=== PATIENT | female | born 1980 | race Caucasian/White ===

== ENCOUNTER 2021-08-21 17:33 | Emergency (ER) | payer MEDICARE, OTHER ==
[2021-08-21 17:42] VITALS: BP 118/76; PULSE 142; RESP 16; TEMP 98.4
[2021-08-21] MEDS ORDERED: ACETAMINOPHEN TAB 325 MG TAB PO STA (18:40)
--- NOTE | 2021-08-21 18:48 | ED ---
General Adult HPI <Gunnar Collazo - Last Filed: 08/21/21 19:54> - General Source: patient Mode of arrival: wheelchair Limitations: no limitations <Nicole Russell - Last Filed: 08/21/21 20:36> - General Chief complaint: Extremity Injury, Lower Stated complaint: Left Toenail injury Time Seen by Provider: 08/21/21 17:50 - History of Present Illness Initial comments: This 40-year-old female presents emergency Department after being sent here by urgent care for left great toenail pain. Patient states she went to step down off a curb when she tripped and fell, causing her left toenail on her great toe to bend backwards. Patient states since her toenails long she felt it pullback and states it began to bleed. Patient denies taking any medications for this. Patient denies her left toenail completely bending over. Patient denies any past trauma to this foot or toe. Patient denies any chest pain, shortness of breath, abdominal pain, nausea, vomiting, headache, lightheadedness, dizziness, change in bowel or bladder, change in appetite. Patient denies any loss consciousness or hitting her head during this fall. She denies of any other complaints at this time. Patient states she does still have full range of motion and sensation in her left foot and toe but does state her left great toe does hurt when she palpates over her nail. (Nicole Russell) - Related Data Allergies Allergy/AdvReac Type Severity Reaction Status Date / Time No Known Allergies Allergy Verified 08/21/21 17:39 Review of Systems ROS Other: All systems not noted in ROS Statement are negative. <ZayGunnar - Last Filed: 08/21/21 19:54> ROS Other: All systems not noted in ROS Statement are negative. <Nicole Russell - Last Filed: 08/21/21 20:36> ROS Statement: Those systems with pertinent positive or pertinent negative responses have been documented in the HPI. Past Medical History Past Medical History: No Reported History History of Any Multi-Drug Resistant Organisms: None Reported Past Surgical History: Orthopedic Surgery Past Psychological History: No Psychological Hx Reported Smoking Status: Never smoker Past Alcohol Use History: None Reported Past Drug Use History: None Reported <Nicole Russell - Last Filed: 08/21/21 20:36> General Exam Limitations: no limitations General appearance: alert, in no apparent distress Head exam: Present: atraumatic, normocephalic, normal inspection Eye exam: Present: normal appearance, PERRL, EOMI. Absent: scleral icterus, conjunctival injection, periorbital swelling ENT exam: Present: normal exam, mucous membranes moist Neck exam: Present: normal inspection, full ROM. Absent: tenderness, meningismus, lymphadenopathy Respiratory exam: Present: normal lung sounds bilaterally. Absent: respiratory distress, wheezes, rales, rhonchi, stridor Cardiovascular Exam: Present: regular rate, normal rhythm, normal heart sounds. Absent: systolic murmur, diastolic murmur, rubs, gallop, clicks GI/Abdominal exam: Present: soft, normal bowel sounds. Absent: distended, tenderness, guarding, rebound, rigid Extremities exam: Present: full ROM (Sensation intact of left toe/foot. Range of motion intact of left toe/foot. Pain to palpation over left great toe), normal capillary refill. Absent: normal inspection (Bright nail senegalese on over great toe of left foot. Blood visualized at proximal nail fold under nailbed where senegalese has grown out. Slight dried blood coming from distal edge of nailbed. The distal nailbed is loose/wiggly. Proximal nail fold is intact. Proximal nail fold fully attached. ), tenderness, pedal edema, joint swelling, calf tenderness Back exam: Present: normal inspection. Absent: CVA tenderness (R), CVA tenderness (L), paraspinal tenderness, vertebral tenderness Neurological exam: Present: alert, oriented X3, CN II-XII intact Psychiatric exam: Present: normal affect, normal mood Skin exam: Present: warm, dry, intact, normal color. Absent: rash <Nicole Russell - Last Filed: 08/21/21 20:36> Course Vital Signs 08/21/21 17:39 Temperature 98.4 F Pulse Rate 142 H Respiratory 16 Rate Blood Pressure 118/76 O2 Sat by Pulse 95 Oximetry Procedures - Nerve Block Consent Obtained: verbal consent (Diagnosis was nailplate avulsion, partial, procedure was nailplate removal.) Local Anesthetic Used: Marcaine 0.5% Side: left Nerve Blocks: other (Great toe) Intraoral Nerve Block: other (Digital block) Procedure Successful: Yes Complications: none Patient Tolerated Procedure: well, no complications <Gunnar Collazo - Last Filed: 08/21/21 19:54> - Nerve Block Additional Comments: Left great toe was draped and prepped in the usual fashion. Marcaine without epinephrine is used to perform a digital block. 3 mL's of anesthetic was used. Patient had adequate anesthesia. The partially avulsed nail plate was removed using hemostats to loosen the nail plate from the nailbed. The nail plate was then removed easily. Area was cleansed. Sterile dressing applied with bacit racin. (Gunnar Collazo) Medical Decision Making <Nicole Russell - Last Filed: 08/21/21 20:36> - Medical Decision Making This 40-year-old female presents emergency Department with left great toenail pain after tripping and falling, bending it back slightly. Distal nail plate loose and proximal nail fold fully attached. Due to patient having gel nail senegalese on, I'm unable to visualize under the full nail plate/bed. Subungual hematoma visualized under proximal nailbed where senegalese has grown out. Patient did refuse nail senegalese being removed. Patient did refuse trephination and stated that she wants the nail to be removed. Left great toenail was removed by my colleague, Gunnar Collazo. Did place bacitracin ointment and bandage on great left toe. X-ray without any acute abnormalities. I did instruct patient to follow up with her primary care provider next 1-2 days. Strict return precautions were discussed. Patient verbally agreed to plan. Patient sent home in stable condition. Case discussed in detail my attending, Dr. Rangel. (Nicole Russell) Disposition <ZayGunnar - Last Filed: 08/21/21 19:54> Is patient prescribed a controlled substance at d/c from ED?: No Time of Disposition: 20:01 <Nicole Russell - Last Filed: 08/21/21 20:36> Clinical Impression: Subungual hematoma of left foot Disposition: HOME SELF-CARE Condition: Stable Additional Instructions: Please follow up with your primary care provider in next 24-48 hours. Return to the emergency department with any new, worsening or concerning symptoms. Take Tylenol or Motrin as directed for pain relief. Referrals: Nevaeh Queen MD [Primary Care Provider] - 1-2 days
[2021-08-21] MEDS ORDERED: BUPIVACAINE (PF) 0.5% 30 ML VIAL SQ STA (18:54)
--- NOTE | 2021-08-21 19:31 | XR ---
EXAMINATION TYPE: XR toes LT DATE OF EXAM: 08/21/2021 COMPARISON: NONE HISTORY: Pain TECHNIQUE: 3 views FINDINGS: I see no fracture nor dislocation. Joint spaces are normal. IMPRESSION: Negative left big toe exam.
[2021-08-21] MEDS ORDERED: BACITRACIN OINT 1 EACH PACKET TOPICAL ONE (19:54)
== END 2021-08-21 20:46 | disposition home or self-care (01) ==
LOC: EC 17:33
DX: S90.212A Contusion of left great toe with damage to nail, initial encounter (principal); W01.0XXA Fall on same level from slipping, tripping and stumbling without subsequent striking against object, initial encounter
CPT/HCPCS: 11740; 96372; 99283

== ENCOUNTER 2021-12-11 12:27 | Day surgery (SDC) | payer MEDICARE, OTHER ==
[2021-12-07 10:23] VITALS: BMI 47.1
[~2021-12-11 12:27] MED LIST: LACTATED RINGERS 1,000 ML IV SCH; LIDOCAINE 1% (10MG/ML) FOR IV START INTRADERMA PRN
[2021-12-11 13:16] VITALS: TEMP 97
[2021-12-11] MEDS ORDERED: LIDOCAINE 2% INJ 20 MG/ML (2 ML VIAL) ONE (13:31)
[2021-12-11] MEDS ORDERED: PROPOFOL 10 MG/ML 20 ML VIAL IV ONE (13:31)
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
--- NOTE | 2021-12-11 13:44 | P.OP ---
Date of Procedure: 12/11/21 Preoperative Diagnosis: Rectal bleeding Postoperative Diagnosis: Perirectal abscess with fistula Procedure(s) Performed: Colonoscopy Anesthesia: MAC Surgeon: Aj Cotot Pathology: none sent Condition: stable Disposition: PACU Description of Procedure: Patient's placed on the endoscopy table lateral position. Digital rectal exam was performed. 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 There was some drainage from the official. The possible colitis scope was then placed patient anus passed with colon. Scope Was passed beyond the transient colon segment a large amount of stool in the colon. The scope was withdrawn. The descending colon and; a few scattered diverticula. Scope was brought back the rectum and this appeared normal. Scope withdrawn for patient.
[2021-12-11 14:26] VITALS: BP 123/88; PULSE 61; RESP 16
== END 2021-12-11 14:24 | disposition home or self-care (01) ==
LOC: ORWHC2ENDO 12:27
PROVIDERS: ATTEND Surgery
DX: K61.1 Rectal abscess (principal); K60.4 Rectal fistula; K57.30 Diverticulosis of large intestine without perforation or abscess without bleeding; J45.909 Unspecified asthma, uncomplicated; K21.9 Gastro-esophageal reflux disease without esophagitis; M54.9 Dorsalgia, unspecified; Z98.891 History of uterine scar from previous surgery; Z98.51 Tubal ligation status; Z98.890 Other specified postprocedural states; F41.9 Anxiety disorder, unspecified; Z87.891 Personal history of nicotine dependence; Z80.6 Family history of leukemia; Z91.018 Allergy to other foods
CPT/HCPCS: 81025; 45378; J2704; J2001

== ENCOUNTER 2023-09-26 23:47 | Emergency (ER) | payer MEDICARE, OTHER ==
[2023-09-27 00:36] VITALS: TEMP 98.2
[2023-09-27 00:41] LABS: Basophils # (A) 0.1 k/uL (0-0.2); Basophils % (A) 1 %; Eosinophils # (A) 0.1 k/uL (0-0.7); Eosinophils % (A) 1 %; HCT 42.9 % (34.0-46.0); HGB 13.9 gm/dL (11.4-16.0); Lymphocytes # (A) 2.7 k/uL (1.0-4.8); Lymphocytes % (A) 49 %; MCH 29.6 pg (25.0-35.0); MCHC 32.5 g/dL (31.0-37.0); MCV 91.2 fL (80.0-100.0); Mean Platelet Volume 8.3; Monocytes # (A) 0.3 k/uL (0-1.0); Monocytes % (A) 6 %; Neutrophils # (A) 2.3 k/uL (1.3-7.7); Neutrophils % (A) 40 %; Platelet Count 268 k/uL (150-450); RBC 4.71 m/uL (3.80-5.40); RDW 14.4 % (11.5-15.5); WBC 5.6 k/uL (3.8-10.6)
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
[2023-09-27 00:51] LABS: ALT 17 U/L (4-34); AST 22 U/L (14-36); African American GFR (CKD) 87 (>60 ml/min/1.73 sqM); Albumin 4.1 g/dL (3.5-5.0); Alkaline Phosphatase 72 U/L (38-126); Anion Gap 9 mmol/L; Blood Urea Nitrogen 13 mg/dL (7-17); Calcium 8.8 mg/dL (8.4-10.2); Carbon Dioxide 19 mmol/L (22-30); Chloride 107 mmol/L (98-107); Glucose 123 mg/dL (74-99); Non-African American GFR(CKD) 76 (>60 ml/min/1.73 sqM); Potassium 3.2 mmol/L (3.5-5.1); Sodium 135 mmol/L (137-145); Total Bilirubin 0.7 mg/dL (0.2-1.3); Total Protein 6.9 g/dL (6.3-8.2)
[2023-09-27] MEDS: ACETAMINOPHEN TAB 500 MG TAB PO STA (01:15)
[2023-09-27] MEDS: IPRATROPIUM-ALBUTEROL 3 ML NEB INHALATION STA (01:39)
[2023-09-27 01:43] VITALS: RESP 20
[2023-09-27] MEDS: POTASSIUM CHLORIDE ER 20 MEQ TAB.ER PO STA (02:25)
[2023-09-27] MEDS: methylPREDNISolone SOD SUCCI 125 MG/2 ML VIAL IV STA (02:25)
[2023-09-27 02:35] VITALS: PULSE 108
[2023-09-27 02:36] VITALS: BP 111/80
[2023-09-27] MEDS: guaiFENesin-DM 100-10MG/5ML 10 ML CUP PO STA (03:11)
--- NOTE | 2023-09-27 07:39 | XR ---
EXAMINATION TYPE: XR chest 2V DATE OF EXAM: 09/27/2023 COMPARISON: None HISTORY: 42-year-old female shortness of breath, difficulty breathing TECHNIQUE: PA and lateral views FINDINGS: Heart normal size. Aorta within normal limits. There are hazy interstitial densities and peribronchia l cuffing. No well-defined consolidation or pleural effusion. IMPRESSION: Consider bronchitis, asthma, or atypical pneumonias.
== END 2023-09-27 03:16 | disposition home or self-care (01) ==
LOC: EC 23:47
DX: J45.901 Unspecified asthma with (acute) exacerbation (principal); J18.9 Pneumonia, unspecified organism; E87.6 Hypokalemia; Z91.018 Allergy to other foods
CPT/HCPCS: 36415; 94640; 93005; 80053; 83605; 84484; 85025; 71046; 99285; 96374; J2919

== ENCOUNTER 2024-03-15 14:16 | Emergency (ER) | payer OTHER ==
[2024-03-15 14:22] VITALS: TEMP 98.2
[2024-03-15 14:46] LABS: Basophils # (A) 0.1 k/uL (0-0.2); Basophils % (A) 1 %; Eosinophils # (A) 0.2 k/uL (0-0.7); Eosinophils % (A) 2 %; HCT 41.6 % (34.0-46.0); HGB 13.4 gm/dL (11.4-16.0); Lymphocytes # (A) 2.3 k/uL (1.0-4.8); Lymphocytes % (A) 30 %; MCH 30.1 pg (25.0-35.0); MCHC 32.3 g/dL (31.0-37.0); MCV 93.2 fL (80.0-100.0); Mean Platelet Volume 7.8; Monocytes # (A) 0.4 k/uL (0-1.0); Monocytes % (A) 5 %; Neutrophils # (A) 4.5 k/uL (1.3-7.7); Neutrophils % (A) 60 %; Platelet Count 289 k/uL (150-450); RBC 4.47 m/uL (3.80-5.40); RDW 13.8 % (11.5-15.5); WBC 7.5 k/uL (3.8-10.6)
[2024-03-15 14:55] LABS: INR 0.9 (<1.2); Prothrombin Time 10.2 sec (10.0-12.5)
--- NOTE | 2024-03-15 14:56 | XR ---
EXAMINATION TYPE: XR chest 2V DATE OF EXAM: 03/15/2024 COMPARISON: 09/27/2023 INDICATION: Chest pain TECHNIQUE: Frontal and lateral views of the chest are obtained. FINDINGS: The heart size is normal. The pulmonary vasculature is normal. The lungs are clear. IMPRESSION: 1. No acute pulmonary process. [facility], Workstation: [facility], 03/15/2024 2:54 PM
[2024-03-15 14:57] LABS: ALT 12 U/L (4-34); AST 19 U/L (14-36); African American GFR (CKD) >90 (>60 ml/min/1.73 sqM); Alkaline Phosphatase 58 U/L (38-126); Anion Gap 6 mmol/L; Blood Urea Nitrogen 8 mg/dL (7-17); Calcium 8.9 mg/dL (8.4-10.2); Carbon Dioxide 22 mmol/L (22-30); Chloride 111 mmol/L (98-107); Glucose 89 mg/dL (74-99); Magnesium 2.1 mg/dL (1.6-2.3); Non-African American GFR(CKD) >90 (>60 ml/min/1.73 sqM); Potassium 3.8 mmol/L (3.5-5.1); Sodium 139 mmol/L (137-145); Total Bilirubin 0.5 mg/dL (0.2-1.3); Total Protein 6.7 g/dL (6.3-8.2)
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
[2024-03-15] MEDS: KETOROLAC 15 MG/ML 1 ML VIAL IVP STA (15:27)
[2024-03-15] MEDS: ORPHENADRINE 30 MG/ML 2 ML VIAL IVP STA (15:28)
[2024-03-15 16:54] VITALS: BP 101/83; PULSE 95; RESP 18
[2024-03-15 23:02] LABS: Hepatitis A Antibody IgM Nonreactive (Nonreactive); Hepatitis B Core IgM Nonreactive (Nonreactive); Hepatitis B Surface Antigen Nonreactive (Nonreactive); Hepatitis C IgG Antibody Nonreactive (Nonreactive)
[2024-03-16 14:10] LABS: HIV 2 AB Non-Reactive (Non-Reactive); HIV AB P24 Non-Reactive (Non-Reactive); HIV P24 AG Non-Reactive (Non-Reactive)
== END 2024-03-15 16:54 | disposition home or self-care (01) ==
LOC: EC 14:16
DX: R07.89 Other chest pain (principal); Z91.018 Allergy to other foods
CPT/HCPCS: 36415; 93005; 80053; 80074; 83735; 84484; 85025; 85610; 85730; 86780; 87390; 71046; 99285; 96374; 96375; J2360; J1885

== ENCOUNTER 2024-05-12 20:09 | Emergency (ER) | payer OTHER ==
[2024-05-12 20:18] VITALS: BP 113/68; PULSE 68; RESP 18; TEMP 98.6
[2024-05-12 20:51] LABS: Basophils # (A) 0.1 k/uL (0-0.2); Basophils % (A) 1 %; Eosinophils # (A) 0.2 k/uL (0-0.7); Eosinophils % (A) 2 %; HCT 41.8 % (34.0-46.0); HGB 13.8 gm/dL (11.4-16.0); Lymphocytes # (A) 2.1 k/uL (1.0-4.8); Lymphocytes % (A) 25 %; MCH 29.8 pg (25.0-35.0); MCHC 32.9 g/dL (31.0-37.0); MCV 90.6 fL (80.0-100.0); Mean Platelet Volume 8.1; Monocytes # (A) 0.4 k/uL (0-1.0); Monocytes % (A) 5 %; Neutrophils # (A) 5.3 k/uL (1.3-7.7); Neutrophils % (A) 66 %; Platelet Count 277 k/uL (150-450); RBC 4.62 m/uL (3.80-5.40); RDW 12.9 % (11.5-15.5); WBC 8.1 k/uL (3.8-10.6)
[2024-05-12 21:00] LABS: INR 0.9 (<1.2); Partial Thromboplastin Time 23.9 sec (22.0-30.0); Prothrombin Time 10.2 sec (10.0-12.5)
--- NOTE | 2024-05-12 21:04 | XR ---
EXAMINATION TYPE: XR chest 2V DATE OF EXAM: 05/12/2024 8:56 PM COMPARISON: 03/15/2024 CLINICAL INDICATION: Female, 43 years old with history of Chest Pain, , TECHNIQUE: PA and lateral views FINDINGS: Heart upper limits of normal in size. Hazy densities likely relating to overlying soft tissue. Mild p eribronchial cuffing. No consolidation or pleural effusion. IMPRESSION: Hazy densities likely relating to overlying soft tissue. There may be underlying bronchitis or asthma . No focal infiltrate seen. [facility], , 05/12/2024 9:02 PM
[2024-05-12 21:15] LABS: ALT 12 U/L (4-34); AST 18 U/L (14-36); African American GFR (CKD) >90 (>60 ml/min/1.73 sqM); Albumin 4.3 g/dL (3.5-5.0); Alkaline Phosphatase 62 U/L (38-126); Anion Gap 7 mmol/L; Blood Urea Nitrogen 11 mg/dL (7-17); Calcium 9.2 mg/dL (8.4-10.2); Carbon Dioxide 27 mmol/L (22-30); Chloride 103 mmol/L (98-107); Glucose 90 mg/dL (74-99); Magnesium 2.2 mg/dL (1.6-2.3); Non-African American GFR(CKD) 81 (>60 ml/min/1.73 sqM); Potassium 4.6 mmol/L (3.5-5.1); Sodium 137 mmol/L (137-145); Total Bilirubin 0.4 mg/dL (0.2-1.3)
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
== END 2024-05-12 21:56 | disposition home or self-care (01) ==
LOC: EC 20:09
DX: R07.9 Chest pain, unspecified (principal); F17.290 Nicotine dependence, other tobacco product, uncomplicated; Z91.018 Allergy to other foods
CPT/HCPCS: 36415; 71046; 80053; 83735; 84484; 85025; 85610; 85730; 93005; 99285

== ENCOUNTER 2024-07-07 | Emergency (ER) | payer MEDICARE, OTHER ==
[2024-07-07 00:14] VITALS: TEMP 98.1
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
[2024-07-07] MEDS: FAMOTIDINE 20 MG TAB PO STA (00:54)
[2024-07-07] MEDS: DOXYCYCLINE 100 MG CAP PO STA (00:54)
[2024-07-07] MEDS: diphenhydrAMINE 50 MG CAP PO STA (00:54)
[2024-07-07 02:15] VITALS: BP 110/67; PULSE 73; RESP 18
== END 2024-07-07 02:20 | disposition home or self-care (01) ==
LOC: EC
DX: F17.290 Nicotine dependence, other tobacco product, uncomplicated (principal); T36.0X5A Adverse effect of penicillins, initial encounter; W54.0XXA Bitten by dog, initial encounter
CPT/HCPCS: 99285

== ENCOUNTER 2024-07-09 18:07 | Emergency (ER) | payer MEDICARE, OTHER ==
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
[2024-07-09 20:44] LABS: Basophils % (A) 0 %; Eosinophils # (A) 0.1 k/uL (0-0.7); Eosinophils % (A) 1 %; HCT 46.7 % (34.0-46.0); HGB 14.8 gm/dL (11.4-16.0); Lymphocytes # (A) 1.5 k/uL (1.0-4.8); Lymphocytes % (A) 17 %; MCH 28.8 pg (25.0-35.0); MCHC 31.7 g/dL (31.0-37.0); MCV 90.9 fL (80.0-100.0); Mean Platelet Volume 7.7; Monocytes # (A) 0.3 k/uL (0-1.0); Monocytes % (A) 3 %; Neutrophils # (A) 6.6 k/uL (1.3-7.7); Neutrophils % (A) 77 %; Platelet Count 349 k/uL (150-450); RBC 5.14 m/uL (3.80-5.40); RDW 12.7 % (11.5-15.5); WBC 8.5 k/uL (3.8-10.6)
[2024-07-09 20:59] LABS: ALT 15 U/L (4-34); African American GFR (CKD) >90 (>60 ml/min/1.73 sqM); Albumin 4.6 g/dL (3.5-5.0); Amylase 42 U/L (30-110); Anion Gap 9 mmol/L; Blood Urea Nitrogen 11 mg/dL (7-17); Calcium 9.4 mg/dL (8.4-10.2); Carbon Dioxide 25 mmol/L (22-30); Chloride 102 mmol/L (98-107); Glucose 100 mg/dL (74-99); Lipase 26 U/L (23-300); Non-African American GFR(CKD) >90 (>60 ml/min/1.73 sqM); Sodium 136 mmol/L (137-145); Total Protein 7.7 g/dL (6.3-8.2)
[2024-07-09 21:10] LABS: AST 24 U/L (14-36); Alkaline Phosphatase 73 U/L (38-126); Potassium 4.8 mmol/L (3.5-5.1)
[2024-07-09 21:19] LABS: Influenza A Not Detected (Not Detectd); Influenza B Not Detected (Not Detectd); RSV Not Detected (Not Detectd)
[2024-07-09] MEDS: SODIUM CHLORIDE 0.9% 1,000 ML IV STA (22:50)
[2024-07-09] MEDS: ONDANSETRON 4 MG/2 ML VIAL IVP STA (23:25)
[2024-07-09] MEDS: KETOROLAC 15 MG/ML 1 ML VIAL IVP STA (23:30)
[2024-07-09] MEDS: DICYCLOMINE 20 MG TAB PO STA (23:33)
[2024-07-10] MEDS: SODIUM CHLORIDE 0.9% 1,000 ML IV STA (00:28)
[2024-07-10] MEDS: METOCLOPRAMIDE 5 MG/ML 2 ML VIAL IVP STA (00:31)
[2024-07-10] MEDS: DICYCLOMINE 10 MG/ML 2 ML AMP IM STA (00:37)
[2024-07-10 01:55] VITALS: BP 106/72; PULSE 73; RESP 18; TEMP 97.7
[2024-07-10] MEDS: ONDANSETRON 4 MG ODT STARTER PACK 2 TAB BTL PO STA (01:55)
== END 2024-07-10 02:00 | disposition home or self-care (01) ==
LOC: EC 18:07
DX: K52.9 Noninfective gastroenteritis and colitis, unspecified (principal); T36.95XA Adverse effect of unspecified systemic antibiotic, initial encounter; F17.290 Nicotine dependence, other tobacco product, uncomplicated
CPT/HCPCS: 36415; 93005; 80053; 82150; 83690; 85025; 87636; 99284; 96374; 96375 ×2; 96361 ×2; 96372; J0500; J2765; J2405; J1885; S0119

== ENCOUNTER 2024-12-10 20:59 | Emergency (ER) | payer MEDICARE, OTHER ==
[2024-12-10 21:12] VITALS: RESP 18
[2024-12-10] MEDS: hydrOXYzine HCL 25 MG TAB PO STA (22:02)
[2024-12-10] MEDS: SODIUM CHLORIDE 0.9% 500 ML 500 ML IV STA (22:04)
--- NOTE | 2024-12-10 22:28 | XR ---
EXAMINATION TYPE: XR chest 2V DATE OF EXAM: 12/10/2024 9:53 PM COMPARISON: Chest radiographs 05/12/2024 CLINICAL INDICATION: Female, 44 years old with history of Chest Pain; [facility] TECHNIQUE: XR chest 2V Frontal and lateral views of the chest. FINDINGS: Lungs/Pleura: There is no evidence of pleural effusion, focal consolidation, or pneumothorax. Pulmonary vascularity: Unremarkable. Heart/mediastinum: Cardiomediastinal silhouette is unremarkable. Musculoskeletal: No acute osseous pathology. Degenerative changes of the spine. IMPRESSION: No acute cardiopulmonary disease/process. [facility], , 12/10/2024 10:25 PM
[2024-12-10 22:33] LABS: Basophils # (A) 0.07 10*3/uL (0.00-0.10); Basophils % (A) 1.0 %; Eosinophils # (A) 0.11 10*3/uL (0.04-0.35); Eosinophils % (A) 1.5 %; HCT 40.6 % (37.2-46.3); HGB 13.3 g/dL (12.0-15.0); Lymphocytes # (A) 2.36 10*3/uL (0.90-5.00); Lymphocytes % (A) 32.3 %; MCH 28.9 pg (27.0-32.0); MCHC 32.8 g/dL (32.0-37.0); MCV 88.3 fL (80.0-97.0); Monocytes # (A) 0.50 10*3/uL (0.20-1.00); Monocytes % (A) 6.8 %; Neutrophils # (A) 4.26 10*3/uL (1.80-7.70); Neutrophils % (A) 58.3 %; Platelet Count 295 10*3/uL (140-440); RBC 4.60 10*6/uL (4.10-5.20); RDW 12.6 % (11.5-14.5); WBC 7.31 10*3/uL (4.50-10.00)
[2024-12-10 22:43] LABS: INR 0.9 (<1.2); Partial Thromboplastin Time 24.0 sec (22.0-30.0); Prothrombin Time 10.3 sec (10.0-12.5)
[2024-12-10 22:46] LABS: ALT 12 U/L (4-34); AST 17 U/L (14-36); African American GFR (CKD) >90 (>60 ml/min/1.73 sqM); Albumin 4.1 g/dL (3.5-5.0); Alkaline Phosphatase 64 U/L (38-126); Anion Gap 8 mmol/L; Blood Urea Nitrogen 11 mg/dL (7-17); Calcium 9.5 mg/dL (8.4-10.2); Carbon Dioxide 26 mmol/L (22-30); Chloride 104 mmol/L (98-107); Glucose 85 mg/dL (74-99); Lipase 30 U/L (23-300); Magnesium 2.2 mg/dL (1.6-2.3); Non-African American GFR(CKD) 85 (>60 ml/min/1.73 sqM); Potassium 4.3 mmol/L (3.5-5.1); Sodium 138 mmol/L (137-145); Total Protein 6.7 g/dL (6.3-8.2)
[2024-12-10 23:11] LABS: Bacteria,Urine Rare /hpf; Bilirubin,Urine Negative (Negative); Blood,Urine Trace (Negative); Color,Urine Colorless; Glucose,Urine (UA) Negative (Negative); Ketones,Urine Negative (Negative); Leukocyte Esterase,Urine Negative (Negative); Mucus,Urine Rare /hpf; Nitrite,Urine Negative (Negative); PH, Urine 5.5 (5.0-8.0); Protein,Urine Negative (Negative); RBC,Urine 1 /hpf (0-5); Specific Gravity,Urine 1.007 (1.001-1.035); Squamous Epithelial Cell,Urine 1 /hpf (0-4); Urobilinogen,Urine <2.0 mg/dL (<2.0); WBC,Urine <1 /hpf (0-5)
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
[2024-12-10 23:48] VITALS: BP 109/67; PULSE 70; TEMP 97.9
== END 2024-12-10 23:51 | disposition home or self-care (01) ==
LOC: EC 20:59
DX: F41.0 Panic disorder [episodic paroxysmal anxiety] (principal); F17.290 Nicotine dependence, other tobacco product, uncomplicated; Z88.0 Allergy status to penicillin; Z91.018 Allergy to other foods
CPT/HCPCS: 36415; 71046; 80053; 81001; 83690; 83735; 84484; 85025; 85610; 85730; 93005; 96360; 96361; 99285